=== PATIENT | female | born 1995 | race American Indian/Alaskan Native ===

== ENCOUNTER 2017-08-02 14:49 | Outpatient (CLI) | payer MEDICAID ==
[2017-08-02] MEDS ORDERED: LACTATED RINGERS 500 ML IV ONE (15:14)
[2017-08-02 15:32] LABS: Bacteria,Urine 1+ /HPF (Negative); Bilirubin,Urine NEG (Negative); Blood,Urine NEG (Negative); Color,Urine Yellow (Yellow); Mucus,Urine FEW /HPF; Protein,Urine <15 mg/dL mg/dL (Negative); Urobilinogen,Urine < 2.0 mg/dL (<2.0)
[2017-08-02] MEDS ORDERED: TYLENOL PO ONE (16:57)
[2017-08-02 17:14] VITALS: BP 118/69
== END 2017-08-02 17:26 | disposition home or self-care (01) ==
LOC: TRG 14:49
PROVIDERS: ATTEND Obstetrics & Gynecology
DX: O47.03 False labor before 37 completed weeks of gestation, third trimester (principal); Z3A.30 30 weeks gestation of pregnancy
CPT/HCPCS: 59025; 81001; 96360; J7120